=== PATIENT | female | born 1990 | race African-American/Black ===

== ENCOUNTER 2018-04-07 20:31 | Emergency (ER) | payer OTHER ==
--- NOTE | 2018-04-07 20:42 | ED Physician Documentation ---
PD HPI FEMALE - Stated complaint Stated Complaint: FEM / - Chief complaint Chief Complaint: Abd Pain - History obtained from History obtained from: Patient - History of Present Illness Timing - onset: How many days ago (has had some lower abd cramping for 3 days at times, with some vaginal spotting/bleeding today. early with dates est 6 weeks based on LMP. Had home preg test positive a week ago.) Timing - details: Abrupt onset, Still present, Waxing and waning Associated symptoms: Vaginal pain, Vaginal discharge. 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 No: Prior ectopic, Ovarian cysts Similar symptoms before: Has not had sx before Recently seen: Not recently seen Review of Systems Constitutional: denies: Fever, Chills, Myalgias Nose: denies: Rhinorrhea / runny nose, Congestion Throat: denies: Sore throat Respiratory: denies: Cough GI: denies: Vomiting, Diarrhea : reports: Vaginal bleeding. denies: Dysuria, Frequency, Discharge PD PAST MEDICAL HISTORY - Past Medical History Cardiovascular: None Respiratory: None Neuro: None Endocrine/Autoimmune: None CABINET INSTALLER: None : None PD ED PE NORMAL - Vitals Vital signs reviewed: Yes - General General: Alert and oriented X 3, No acute distress, Well developed/nourished - HEENT HEENT: Pharynx benign - Neck Neck: Supple, no meningeal sign, No adenopathy - Cardiac Cardiac: RRR, No murmur - Respiratory Respiratory: Clear bilaterally - Abdomen Abdomen: Soft, Non distended - Female Female : Deferred Results - Vitals Vitals: Vital Signs - 24 hr 04/07/18 04/07/18 20:34 22:17 Temperature 36.2 C L 36.6 C Heart Rate 78 73 Respiratory 16 14 Rate Blood Pressure 121/47 L 123/55 L O2 Saturation 100 100 Oxygen O2 Source Room air - Labs Labs: Laboratory Tests 04/07/18 04/07/18 04/07/18 20:44 20:44 21:01 WBC 6.1 RBC 3.71 L Hgb 12.0 Hct 35.3 L MCV 95.1 MCH 32.2 H MCHC 33.9 RDW 12.2 Plt Count 186 MPV 9.0 Neut # (Auto) 2.8 Lymph # (Auto) 2.6 [place] # (Auto) 0.5 Eos # (Auto) 0.1 Baso # (Auto) 0.0 Absolute Nucleated RBC 0.00 Nucleated RBC % 0.0 HCG, Quant Urine Color YELLOW Urine Clarity HAZY Urine pH 6.5 Ur Specific [place] 1.025 1.025 Urine Protein NEGATIVE Urine Glucose (UA) NEGATIVE Urine Ketones NEGATIVE Urine Occult Blood SMALL H Urine Nitrite NEGATIVE Urine Bilirubin NEGATIVE Urine Urobilinogen 0.2 (NORMAL) Ur Leukocyte Esterase NEGATIVE Urine RBC 6-10 H Urine WBC 0-3 Ur Squamous Epith Cells MOD Squamous H Amorphous Sediment Moderate Urine Bacteria Few Ur Microscopic Review INDICATED Urine Culture Comments NOT INDICATED Urine HCG, Qual POSITIVE Blood Type 04/07/18 04/07/18 21:01 21:01 WBC RBC Hgb Hct MCV MCH MCHC RDW Plt Count MPV Neut # (Auto) Lymph # (Auto) [place] # (Auto) Eos # (Auto) Baso # (Auto) Absolute Nucleated RBC Nucleated RBC % HCG, Quant 1143.52 Urine Color Urine Clarity Urine pH Ur Specific [place] Urine Protein Urine Glucose (UA) Urine Ketones Urine Occult Blood Urine Nitrite Urine Bilirubin Urine Urobilinogen Ur Leukocyte Esterase Urine RBC Urine WBC Ur Squamous Epith Cells Amorphous Sediment Urine Bacteria Ur Microscopic Review Urine Culture Comments Urine HCG, Qual Blood Type O POSITIVE PD MEDICAL DECISION MAKING - ED course Complexity details: reviewed results (No IUP seen but quant at 1100s. So could b e just early and too small to see vs miscarriage. Will need repeat quant HCG in 2-3 days. She is stable for discharge at this time. ), considered differential, d/w patient Departure - Departure Disposition: 01 Home, Self Care Clinical Impression: Vaginal bleeding affecting early Condition: Stable Record reviewed to determine appropriate education?: Yes Instructions: ED Miscarriage Poss Follow-Up: Alan Land MD [Primary Care Provider] - Comments: Drink lots of fluids. Tylenol or ibuprofen if needed for pains. The ultrasound was normal and your blood test quantitative hCG is of a level where the may be too early to see on ultrasound a quarter of the time. Repeating the blood test in about 3 to his would give better certainty of whether this is an early not yet visible versus having been a miscarriage. Return if significant bleeding develops. Otherwise follow-up with your primary care for repeat blood test in 2-3 days. Discharge Date/Time: 04/07/18 22:22
[2018-04-07 20:53] LABS: BILIRUBIN,URINE NEGATIVE (NEGATIVE); GLUCOSE, URINE (UA) NEGATIVE (NEGATIVE); KETONES,URINE (UA) NEGATIVE (NEGATIVE); LEUKOCYTE ESTERASE, URINE NEGATIVE (NEGATIVE); NITRITE,URINE NEGATIVE (NEGATIVE); OCCULT BLOOD,URINE SMALL (NEGATIVE); PH,URINE 6.5 PH (5.0-7.5); PROTEIN,URINE NEGATIVE (NEGATIVE); UROBILINOGEN,URINE 0.2 (NORMAL) E.U./dL (NORMAL)
[2018-04-07 20:56] LABS: CLARITY,URINE HAZY (CLEAR)
[2018-04-07 20:57] LABS: HCG UR QUAL POSITIVE
[2018-04-07 21:01] LABS: AMORPHOUS SEDIMENT,UR Moderate /LPF; BACTERIA,URINE Few /HPF (None Seen); SQUAMOUS EPITHELIAL CELL,UR MOD Squamous (<= Few)
[2018-04-07 21:09] LABS: BASOPHILS % (AUTO) 0.6 %; EOSINOPHILS # (AUTO) 0.1 10^3/uL (0.0-0.7); EOSINOPHILS % (AUTO) 2.1 %; LYMPHOCYTES # (AUTO) 2.6 10^3/uL (1.5-3.5); LYMPHOCYTES % (AUTO) 43.4 %; MEAN CORPUSCULAR HEMOGLOBIN 32.2 pg (27.0-31.0); MEAN CORPUSCULAR HGB CONC 33.9 g/dL (32.0-36.0); MEAN CORPUSCULAR VOLUME 95.1 fL (81.0-99.0); MONOCYTES # (AUTO) 0.5 10^3/uL (0.0-1.0); MONOCYTES % (AUTO) 7.8 %; NEUTROPHILS # (AUTO) 2.8 10^3/uL (1.5-6.6); NEUTROPHILS % (AUTO) 46.1 %; PLT - PLATELET COUNT 186 10^3/uL (130-450); RED BLOOD COUNT 3.71 10^6/uL (4.20-5.40); RED CELL DISTRIBUTION WIDTH 12.2 % (12.0-15.0); WHITE BLOOD COUNT 6.1 x10^3/uL (4.8-10.8)
--- NOTE | 2018-04-07 22:05 | Ultrasound Report ---
Reason: preg about 5-6 weeks by dates; bleeding Procedure Date: 04/07/2018 Accession Number: [id number] / [id number] Procedure: US - OB First Trimester CPT Code: FULL RESULT: EXAM: FIRST TRIMESTER OBSTETRIC ULTRASOUND (LESS THAN 11 WEEKS). EXAM DATE: 04/07/2018 09:51 PM. CLINICAL HISTORY: about 5-6 weeks by dates; bleeding. LMP: 02/24/2018. COMPARISONS: None. TECHNIQUE: Transabdominal and transvaginal ultrasound examination with static image documentation. CLINICAL DATES: EGA 6 weeks 0 days with MELVINA 12/01/2018 based on LMP. ASSESSMENT: Gestational Sac: None seen. MATERNAL STRUCTURES: Uterus: Anteverted. Unremarkable. Cervix: Closed. Right Ovary/Adnexa: The ovary measures 2.9 x 1.9 x 1.7 cm, volume 4.9 cc. Unremarkable. Left Ovary/Adnexa: The ovary measures 2.6 x 1.5 x 1.2 cm, volume 2.4 cc. Unremarkable. Free Fluid: None. Other: None. IMPRESSION: 1. Normal pelvic ultrasound exam demonstrating no evidence of intrauterine or ectopic . RADIA
[2018-04-07 22:18] VITALS: BP 123/55
== END 2018-04-07 22:22 | disposition home or self-care (01) ==
LOC: ED 20:31
DX: O20.9 Hemorrhage in early pregnancy, unspecified (principal); Z3A.01 Less than 8 weeks gestation of pregnancy
CPT/HCPCS: 36415; 76801; 76817; 81001; 81003; 81025; 84702; 85025; 86900; 86901; 87086; 99283

== ENCOUNTER 2018-04-22 14:12 | Day surgery (SDC) | payer OTHER ==
[2018-04-22 14:49] LABS: BASOPHILS % (AUTO) 0.3 %; EOSINOPHILS % (AUTO) 0.1 %; LYMPHOCYTES # (AUTO) 1.2 10^3/uL (1.5-3.5); LYMPHOCYTES % (AUTO) 10.8 %; MEAN CORPUSCULAR HEMOGLOBIN 32.4 pg (27.0-31.0); MEAN CORPUSCULAR HGB CONC 33.9 g/dL (32.0-36.0); MEAN CORPUSCULAR VOLUME 95.6 fL (81.0-99.0); MEAN PLATELET VOLUME 9.2 fL (7.9-10.8); MONOCYTES # (AUTO) 0.4 10^3/uL (0.0-1.0); MONOCYTES % (AUTO) 3.7 %; NEUTROPHILS # (AUTO) 9.4 10^3/uL (1.5-6.6); NEUTROPHILS % (AUTO) 85.1 %; PLT - PLATELET COUNT 183 10^3/uL (130-450); WHITE BLOOD COUNT 11.1 x10^3/uL (4.8-10.8)
[2018-04-22 15:02] LABS: ALBUMIN 4.2 g/dL (3.2-5.5); ALBUMIN/GLOBULIN RATIO 1.6 (1.0-2.2); BILIRUBIN,TOTAL 0.7 mg/dL (0.2-1.0); CALCIUM 9.1 mg/dL (8.5-10.3); CREATININE 0.8 mg/dL (0.4-1.0); TOTAL PROTEIN 6.9 g/dL (6.7-8.2)
[2018-04-22] MEDS ORDERED: SODIUM CHLORIDE 0.9% 1,000 ML IV ONE ×4 (16:11→17:50)
[2018-04-22] MEDS ORDERED: fentaNYL 100 MCG/2 ML VIAL IVP STA (16:27)
[2018-04-22] MEDS ORDERED: ONDANSETRON 4 MG/2 ML VIAL IVP STA (16:28)
--- NOTE | 2018-04-22 16:28 | ED Physician Documentation ---
PD HPI ABD PAIN - Stated complaint Stated Complaint: ABD PX/FEMALE - Chief complaint Chief Complaint: Abd Pain - History obtained from History obtained from: Patient - History of Present Illness Timing - onset: Today Timing - duration: Hours (8) Timing - details: Abrupt onset Pain level max: 10 Pain level now: 10 Quality: Aching, Pain Location: All over / everywhere Radiation: Other (non-radiating) Improved by: Other (nothing) Worsened by: Moving, Palpation Associated symptoms: No: Fever, Nausea, Vomiting, Hematemesis, Diarrhea, Constipation, Melena, Hematochezia, Dysuria Recently seen: Not recently seen - Additional information Additional information: 28-year-old female presents to the emergency department after being diagnosed with a spontaneous miscarriage approximately 2 weeks ago. Her hCG was 1100 at that time. [facility] and found to be 800. This morning had sudden onset of lower abdominal pain now radiating across the entire abdomen. Has vaginal spotting as well. 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 : None - Present Medications Home Medications: Ambulatory Orders Medication Instructions Recorded Confirmed Multivitamin [Multiple Vitamins] 1 tab PO DAILY 04/22/18 04/22/18 - Allergies Allergies/Adverse Reactions: Allergies Allergy/AdvReac Type Severity Reaction Status Date / Time No Known Drug Allergies Allergy Verified 04/22/18 14:31 - Social History Does the pt smoke?: No Smoking Status: Never smoker Does the pt drink ETOH?: No Does the pt have substance abuse?: No - Immunizations Immunizations are current?: No - POLST Patient has POLST: No PD ED PE NORMAL - Vitals Vital signs reviewed: Yes - General General: Alert and oriented X 3, No acute distress - HEENT HEENT: Moist mucous membranes - Neck Neck: Supple, no meningeal sign - Cardiac Cardiac: RRR, Strong equal pulses - Respiratory Respiratory: No respiratory distress, Clear bilaterally - Abdomen Abdomen: Soft, Other (diffusely tender with peritoneal signs) - Back Back: No spinal TTP - Derm Derm: Warm and dry - Extremities Extremities: No edema - Neuro Neuro: Alert and oriented X 3 Results - Vitals Vitals: Vital Signs - 24 hr 04/22/18 04/22/18 04/22/18 14:27 14:31 14:32 Temperature 36.5 C Heart Rate 94 92 85 Respiratory 18 15 Rate Blood Pressure 95/56 L 85/48 L 90/56 L O2 Saturation 100 100 04/22/18 04/22/18 04/22/18 14:55 16:19 16:56 Temperature Heart Rate 82 97 Respiratory 15 15 Rate Blood Pressure 79/38 L 90/60 109/49 L O2 Saturation 95 04/22/18 04/22/18 04/22/18 20:05 20:10 20:15 Temperature 36.4 C L 36.1 C L 36.2 C L Heart Rate 128 H 113 H 109 H Respiratory 20 17 16 Rate Blood Pressure 128/49 L 119/43 L 105/44 L O2 Saturation 100 100 100 04/22/18 04/22/18 04/22/18 20:20 20:27 20:35 Temperature 36.1 C L 36.1 C L Heart Rate 108 H 109 H 94 Respiratory 20 16 20 Rate Blood Pressure 112/58 L 112/67 113/63 O2 Saturation 100 100 04/22/18 04/22/18 04/22/18 20:45 20:50 21:05 Temperature 36 C L 36.0 C L 36.4 C L Heart Rate 96 93 88 Respiratory 14 17 16 Rate Blood Pressure 113/60 113/60 112/44 L O2 Saturation 100 100 04/22/18 04/22/18 04/22/18 21:20 21:35 21:50 Temperature 36.6 C Heart Rate 106 H 99 99 Respiratory 16 16 16 Rate Blood Pressure 109/71 115/51 L 114/51 L O2 Saturation 100 100 100 04/22/18 04/22/18 04/22/18 22:01 22:29 23:01 Temperature 36.8 C Heart Rate 94 102 H 94 Respiratory 16 16 14 Rate Blood Pressure 116/50 L 114/51 L 113/49 L O2 Saturation 100 100 100 Oxygen O2 Source Room air - Labs Labs: Laboratory Tests 04/22/18 04/22/18 04/22/18 14:45 14:45 14:45 WBC 11.1 H RBC 3.70 L Hgb 12.0 Hct 35.4 L MCV 95.6 MCH 32.4 H MCHC 33.9 RDW 12.0 Plt Count 183 MPV 9.2 Neut # (Auto) 9.4 H Lymph # (Auto) 1.2 L [place] # (Auto) 0.4 Eos # (Auto) 0.0 Baso # (Auto) 0.0 Absolute Nucleated RBC 0.01 Nucleated RBC % 0.0 Sodium 135 Potassium 3.9 Chloride 103 Carbon Dioxide 24 Anion Gap 8.0 BUN 10 Creatinine 0.8 Estimated GFR (MDRD) 104 Glucose 109 H Calcium 9.1 Total Bilirubin 0.7 AST 14 ALT 11 Alkaline Phosphatase 53 Total Protein 6.9 Albumin 4.2 Globulin 2.7 Albumin/Globulin Ratio 1.6 Lipase 22 HCG, Quant 3007.00 Urine Color Urine Clarity Urine pH Ur Specific [place] Urine Protein Urine Glucose (UA) Urine Ketones Urine Occult Blood Urine Nitrite Urine Bilirubin Urine Urobilinogen Ur Leukocyte Esterase Ur Microscopic Review Urine Culture Comments Blood Type Antibody Screen Crossmatch IS Only 04/22/18 04/22/18 04/22/18 15:59 15:59 22:00 WBC RBC Hgb Hct MCV MCH MCHC RDW Plt Count MPV Neut # (Auto) Lymph # (Auto) [place] # (Auto) Eos # (Auto) Baso # (Auto) Absolute Nucleated RBC Nucleated RBC % Sodium Potassium Chloride Carbon Dioxide Anion Gap BUN Creatinine Estimated GFR (MDRD) Glucose Calcium Total Bilirubin AST ALT Alkaline Phosphatase Total Protein Albumin Globulin Albumin/Globulin Ratio Lipase HCG, Quant Urine Color YELLOW Urine Clarity CLEAR Urine pH 5.0 Ur Specific [place] >=1.030 H Urine Protein NEGATIVE Urine Glucose (UA) 250 H Urine Ketones NEGATIVE Urine Occult Blood TRACE-LYSE Urine Nitrite NEGATIVE Urine Bilirubin NEGATIVE Urine Urobilinogen 0.2 (NORMAL) Ur Leukocyte Esterase NEGATIVE Ur Microscopic Review NOT INDICATED Urine Culture Comments NOT INDICATED Blood Type O POSITIVE Cancelled Antibody Screen NEGATIVE Cancelled Crossmatch IS Only See Detail PD MEDICAL DECISION MAKING - ED course Complexity details: reviewed results, re-evaluated patient, considered differential, d/w patient, d/w family, d/w internal audit consultant ED course: 28-year-old female presents to the emergency department with diffuse abdominal pain since this morning. Story is concerning for a ruptured ectopic . Bedside ultrasound reveals free fluid in the right upper quadrant and left upper quadrant. Call was placed to Dr. Neumann at 1630 who will come evaluate the patient. Type and screen performed. Second IV placed. IV fluids given. Pain controlled. This document was made in part using voice recognition software. While efforts are made to proofread this document, sound alike and grammatical errors may occur. Departure - Departure Disposition: ED Transfer to [facility] Clinical Impression: Hemoperitoneum, Ruptured ectopic Condition: Serious Discharge Date/Time: 04/22/18 17:59
--- NOTE | 2018-04-22 17:00 | ANESTHESIA ---
Pre-Anesthesia VS, & Labs - Diagnosis ruptured ectopic - Procedure laparoscopy removal of ectopic Vital Signs: Temp Pulse Resp BP Pulse Ox 36.5 C 82 15 90/60 100 04/22/18 14:27 04/22/18 16:19 04/22/18 16:19 04/22/18 16:19 04/22/18 14:32 Height 5 ft 5 in Weight (kg) 72.575 kg Body Mass Index 26.6 - NPO Other (2 hours) - Is Patient ?: Yes - Lab Results Current Lab Results: Laboratory Tests 04/22/18 14:45: HCG, Quant 3007.00 04/22/18 14:45: Sodium 135, Potassium 3.9, Chloride 103, Carbon Dioxide 24, Anion Gap 8.0, BUN 10, Creatinine 0.8, Estimated GFR (MDRD) 104, Glucose 109 H, Calcium 9.1, Total Bilirubin 0.7, AST 14, ALT 11, Alkaline Phosphatase 53, Total Protein 6.9, Albumin 4.2, Globulin 2.7, Albumin/Globulin Ratio 1.6, Lipase 22 04/22/18 14:45: WBC 11.1 H, RBC 3.70 L, Hgb 12.0, Hct 35.4 L, MCV 95.6, MCH 32.4 H, MCHC 33.9, RDW 12.0, Plt Count 183, MPV 9.2, Neut # (Auto) 9.4 H, Lymph # (Auto) 1.2 L, [place] # (Auto) 0.4, Eos # (Auto) 0.0, Baso # (Auto) 0.0, Absolute Nucleated RBC 0.01, Nucleated RBC % 0.0 Lab results reviewed: Yes Fish Bones: 04/22/18 14:45 04/22/18 14:45 Home Medications and Allergies Home Medications: Ambulatory Orders Multivitamin [Multiple Vitamins] 1 tab PO DAILY 04/22/18 Active Medications Sodium Chloride (Normal Saline 0.9%) 1,000 mls @ 150 mls/hr IV .[id number] ONE Stop: 04/22/18 22:50 Last Admin: 04/22/18 16:30 Dose: 150 mls/hr Multivitamin [Multiple Vitamins] 1 tab PO DAILY 04/22/18 Allergies/Adverse Reactions: Allergies Allergy/AdvReac Type Severity Reaction Status Date / Time No Known Drug Allergies Allergy Verified 04/22/18 14:31 Anes History & Medical History - Anesthetic History Anesthesia Complications: reports: No previous complications Family history of Anesthesia Complications: Denies Family history of Malignant Hyperthermia: Denies - Medical History Cardiovascular: reports: None Pulmonary: reports: None, Asthma Urinary: reports: None Neuro: reports: None Endocrine/Autoimmune: reports: None Smoking Status: Never smoker Exam General: Alert, Oriented x3, Cooperative, No acute distress Dental: WNL Mouth Openin Fingerbreadth Neck Mobility: Normal Mallampati classification: II Thyromental Distance: 4-6 cm Respiratory: Lungs clear, Normal breath sounds, No respiratory distress, No accessory muscle use Cardiovascular: Regular rate, Normal S1, Normal S2, No murmurs Plan Anesthesia Type: General Consent for Procedure(s) Verified and Reviewed: Yes Code Status: Attempt Resuscitation ASA classification: 2-Mild systemic disease Is this case an emergency?: Yes
[2018-04-22] MEDS ORDERED: ceFAZolin 2 GM/50 ML 2 GM/50 ML BAG IV STA (17:34)
[2018-04-22] MEDS ORDERED: BUPIVACAINE 0.25%-EPI 1:200000 PF 30 ML VIAL ONE (17:54)
[2018-04-22] MEDS ORDERED: ceFAZolin 2 GM in SODIUM CHLORIDE 0.9% MINIBAG 100 ML IV SCH (18:00)
--- NOTE | 2018-04-22 18:18 | PREOP HISTORY & PHYSICAL ---
DATE OF SERVICE: 04/22/2018 Physician: Blake Neumann MD 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: A 28-year-old G6, P3, AB2, female whose last menstrual period was 02/24/2019. CHIEF COMPLAINT: Pelvic and abdominal pain. HISTORY OF PRESENT ILLNESS: Patient developed onset of her abdominal pain about 8 o'clock this morning. It has become progressively worse with time. She presents to the ED for evaluation. She had a quantitative hCG done at an unknown date, which was 1000. Historically, it fell to 800. Today in the ED, it is 3700. She had an ultrasound done in the ED, which shows a large amount of blood or fluid surrounding the liver. She does have a history of having a chlamydial infection in the past, which appears to be distant. PAST MEDICAL HISTORY: Asthma. PAST SURGICAL HISTORY: Left Hand teeth. ALLERGIES: NONE KNOWN. CURRENT MEDICATIONS: vitamins as well as an albuterol inhaler p.r.n. HABITS: None. 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 PHYSICAL EXAMINATION GENERAL: Well-developed, well-nourished female, who is in a significant amount of pain at this time. She is rather apprehensive. VITAL SIGNS: Blood pressure is 90/60, pulse 82, respirations 15, 100% on room air. HEENT: Pupils are equal, round. Extraocular muscles are intact. Mouth is clear. HEART: Regular rate and rhythm. LUNGS: [place] are clear. ABDOMEN: Tender throughout. There is evidence of rebound. DIAGNOSTIC AND LABORATORY DATA Ultrasound showed a large amount of fluid around the liver. This appears to be blood. CBC: White count 11.5, hemoglobin 12.0, hematocrit 35.4, platelets are 183. Beta hCG here in the ED is 3007. BMP is noted to be within normal limits. LFTs are also noted to be normal. IMPRESSION: A 28-year-old G6, P3, AB2, female 8 weeks with what appears to be an ectopic . The risks and benefits have been explained to the patient including those but not limited to bleeding, infection, injury to pelvic organs, which include the uterus, tubes, ovaries, bowel, bladder, and ureters. She is aware of the potential for DVT with PE. PLAN: We are planning to do diagnostic laparoscopy with probable salpingectomy as well as irrigation of the abdominal cavity. TD: 04/22/2018 17:11 [email or web address]
[2018-04-22] MEDS ORDERED: BUPIVACAINE 0.25%-EPI 1:200000 PF 10 ML VIAL SUBQ ONE ×2 (18:35)
[2018-04-22] MEDS ORDERED: LACTATED RINGERS 1,000 ML IV ONE (18:50)
[2018-04-22] MEDS ORDERED: GLYCOPYRROLATE 1 MG/5 ML VIAL IVP ONE (20:08)
[2018-04-22] MEDS ORDERED: ONDANSETRON 4 MG/2 ML VIAL IVP ONE (20:08)
[2018-04-22] MEDS ORDERED: LIDOCAINE-MPF 2% 5 ML VIAL IM ONE (20:08)
[2018-04-22] MEDS ORDERED: ePHEDrine 50 MG/ML VIAL IVP ONE (20:08)
[2018-04-22] MEDS ORDERED: ceFAZolin 2 GM/50 ML 2 GM/50 ML BAG IV ONE (20:08)
[2018-04-22] MEDS ORDERED: PROPOFOL 200 MG/20 ML VIAL IVP ONE (20:08)
[2018-04-22] MEDS ORDERED: KETOROLAC 30 MG/ML VIAL IVP ONE (20:08)
[2018-04-22] MEDS ORDERED: fentaNYL 100 MCG/2 ML VIAL IVP ONE (20:08)
[2018-04-22] MEDS ORDERED: ROCURONIUM 50 MG/5 ML VIAL IVP ONE (20:08)
--- NOTE | 2018-04-22 20:16 | OPERATIVE REPORT ---
Operative Report - General Procedure Date: 04/22/18 Planned Procedure: Dx Laproscopy Pre-Op Diagnosis: Ectopic Procedure Performed: Left salpingectomy, removal of 1600 ml of blood Post Op Diagnosis: Hemoperitoneum, left ectopic - Procedure Note Primary Surgeon: Blake Neumann MD Anesthesia Provider: Loi Prasad MD Anesthesia Technique: General ET tube Pathology: Left fallopian tube IV Fluids (mL): 1,500 Estimated Blood Loss (mL): 1,600 Urine Output (mL): 300 - Other Other Information/Narrative: dictation # [id number]
[2018-04-22] MEDS ORDERED: LORazepam 2 MG/ML VIAL IVP PRN (20:28)
[2018-04-22] MEDS ORDERED: oxyCODONE 5 MG TABLET PO PRN (20:28)
[2018-04-22] MEDS ORDERED: ONDANSETRON 4 MG/2 ML VIAL IVP PRN (20:28)
[2018-04-22] MEDS ORDERED: fentaNYL 100 MCG/2 ML VIAL ONE (20:43)
[2018-04-22] MEDS: HYDROmorphone 0.5 MG/0.5 ML SYRINGE IVP PRN (21:44)
[2018-04-22] MEDS ORDERED: SODIUM CHLORIDE FLUSH 0.9% 10 ML SYRINGE ONE (21:46)
[2018-04-22 22:12] LABS: BILIRUBIN,URINE NEGATIVE (NEGATIVE); GLUCOSE, URINE (UA) 250 mg/dL (NEGATIVE); KETONES,URINE (UA) NEGATIVE (NEGATIVE); LEUKOCYTE ESTERASE, URINE NEGATIVE (NEGATIVE); NITRITE,URINE NEGATIVE (NEGATIVE); OCCULT BLOOD,URINE TRACE-LYSE (NEGATIVE); PROTEIN,URINE NEGATIVE (NEGATIVE); UROBILINOGEN,URINE 0.2 (NORMAL) E.U./dL (NORMAL)
[2018-04-22 22:13] LABS: CLARITY,URINE CLEAR (CLEAR)
[2018-04-23] MEDS ORDERED: SODIUM CHLORIDE FLUSH 0.9% 10 ML SYRINGE ONE ×4 (01:08→14:00)
[2018-04-23] MEDS: HYDROmorphone 0.5 MG/0.5 ML SYRINGE IVP PRN (01:09)
--- NOTE | 2018-04-23 05:16 | OPERATIVE REPORT ---
DATE OF SERVICE: 04/22/2018 Physician: Blake Neumann MD PREOPERATIVE DIAGNOSIS: Ectopic . POSTOPERATIVE DIAGNOSIS: Left ectopic with 1600 mL of hemoperitoneum. PROCEDURE: Laparoscopic left salpingectomy and irrigation and removal of hemoperitoneum. SURGEON: Blake Neumann MD ANESTHESIA: General via endotracheal tube with Loi Lambert MD. ESTIMATED BLOOD LOSS: 1600 mL of hemoperitoneum was encountered. Blood loss from the procedure itself was minimal. INTRAVENOUS FLUIDS: 1500 mL URINE OUTPUT: 300 mL FINDINGS: Upon entering the abdominal cavity, there was evidence of a large amount of blood in the cul-de-sac, as well as around the liver. This was removed. There was evidence of swelling and discoloration of the left fallopian tube. The right fallopian tube appeared to be free of disease. There was blood actively dripping from the left fallopian tube. DESCRIPTION OF PROCEDURE: Following adequate endotracheal anesthesia, patient was placed in the dorsal lithotomy position in [facility]. At this point, she was prepped and draped in the usual fashion. A timeout was performed, in which concerns were addressed. Because she was young, the concerns about her stability, as well as the amount of blood loss were raised. The procedure was then commenced. A speculum was placed in the vagina. The cervix was visualized, grasped with a single-tooth tenaculum, and the cervical manipulator was placed without difficulty. The hat blocking operator's gloves were changed and, following this, a stab wound was made in subumbilical region following local anesthesia with 0.25% Marcaine with epinephrine. A 5 mm port was placed on the first pass, and upon placing the laparoscope, there was evidence of a large amount of blood in the pelvis. Two additional ports were placed, both in the left and right lower quadrants, following 0.25% Marcaine with epinephrine and a skin incision with a #11 blade. At this point, the cul-de-sac was irrigated, and the pelvis was suctioned clear of the predominant amount of clot, and there was evidence of a left fallopian tube with an ectopic and blood actively dripping. At this point, the mesosalpinx was cauterized and transected, utilizing the LigaSure. This was carried all the way down to the cornu. Care was taken to try to minimize any injury to the vascularity to the left ovary. There was some difficulty with bleeding at the cornu, as well as the round ligament area. This was treated with the LigaSure several times and appeared as though the bleeding had ceased. The cul-de-sac was suctioned clear of any clot. The scope was then turned to the liver, and there was evidence of a large amount of blood around the perihepatic area. This was suctioned clear and, because of some large clots, the right lower quadrant port was increased to 10 mm, and then this was utilized to suction the area clear of clot. The area was then irrigated and then re- suctioned. The patient was placed then back in Trendelenburg, and then the cul-de-sac was irrigated. The area of the fallopian tube was once again inspected. There was no evidence of active bleeding. At this point, the 10 mm port was removed from the right lower quadrant and then closed utilizing 0 Vicryl, utilizing a Nimesh-Nuha. The laparoscope was used to observe the subumbilical port, and there was no evidence of any bleeding from this site. The scope was removed, and the CO2 was allowed to escape as much as possible. At this point, the port was also removed. The incisions were then closed utilizing 4-0 Monocryl subcuticular, and then Dermabond was placed. The instruments were removed from the vagina. Patient tolerated the procedure well and was taken to Recovery in stable condition. Sponge and needle counts were correct. TD: 04/22/2018 20:36 [email or web address]
[2018-04-23] MEDS: ACETAMINOPHEN 325 MG TABLET PO PRN ×3 (05:47→14:03)
[2018-04-23 05:55] LABS: BASOPHILS % (AUTO) 0.2 %; EOSINOPHILS % (AUTO) 0.1 %; HGB - HEMOGLOBIN 10.7 g/dL (12.0-16.0); LYMPHOCYTES # (AUTO) 2.3 10^3/uL (1.5-3.5); LYMPHOCYTES % (AUTO) 21.6 %; MEAN CORPUSCULAR HEMOGLOBIN 31.9 pg (27.0-31.0); MEAN CORPUSCULAR HGB CONC 35.1 g/dL (32.0-36.0); MEAN CORPUSCULAR VOLUME 90.9 fL (81.0-99.0); MEAN PLATELET VOLUME 9.5 fL (7.9-10.8); MONOCYTES # (AUTO) 0.9 10^3/uL (0.0-1.0); MONOCYTES % (AUTO) 8.5 %; NEUTROPHILS # (AUTO) 7.6 10^3/uL (1.5-6.6); NEUTROPHILS % (AUTO) 69.6 %; PLT - PLATELET COUNT 140 10^3/uL (130-450); RED BLOOD COUNT 3.37 10^6/uL (4.20-5.40); RED CELL DISTRIBUTION WIDTH 14.7 % (12.0-15.0); WHITE BLOOD COUNT 10.9 x10^3/uL (4.8-10.8)
[2018-04-23] MEDS: LACTATED RINGERS 1,000 ML IV SCH ×2 (07:53→09:27)
[2018-04-23] MEDS: KETOROLAC 30 MG/ML VIAL IVP PRN ×2 (07:54→14:03)
--- NOTE | 2018-04-23 08:11 | PROVIDER PROGRESS NOTE ---
Subjective - General Procedure Date: 04/22/18 Post Op Days: 1 Procedure Performed: Laproscopic left salpingectomy - Review of Systems General: positive: Other (Pain 06/17. Last PM 10/17. adiquit control with pain medication. No flatus) Objective - Patient Data Reviewed Vital Signs: Yes Vital Signs: Vital Signs x48h Temp Pulse Resp BP Pulse Ox 04/23/18 07:37 37.1 C 100 18 103/49 L 100 04/23/18 06:54 37.0 C 113 H 16 101/50 L 100 04/23/18 03:37 37.0 C 89 16 105/45 L 04/23/18 03:02 99 16 103/45 L 100 04/23/18 02:50 98 16 96/48 L 100 04/23/18 01:50 98 16 101/43 L 100 04/23/18 01:16 37.0 C 103 H 16 106/41 L 04/23/18 00:50 104 H 16 105/49 L 100 04/23/18 00:49 37.0 C 98 16 105/45 L Weight: Weight 04/21/18 04/22/18 04/23/18 23:59 23:59 23:59 Weight (kg) 72.575 kg Intake & Output: Intake and Output Totals x24h 04/21/18 04/22/18 04/23/18 23:59 23:59 23:59 Intake Total 3400 850 Output Total 1100 Balance 3400 -250 - Lab Results Lab Results: 04/23/18 05:35 04/22/18 14:45 Other Lab Results: Lab Results x24hrs 04/23/18 04/22/18 04/22/18 Range/Units 05:35 22:00 15:59 WBC 10.9 H (4.8-10.8) x10^3/uL RBC 3.37 L (4.20-5.40) 10^6/uL Hgb 10.7 L (12.0-16.0) g/dL Hct 30.6 L (37.0-47.0) % MCV 90.9 (81.0-99.0) fL MCH 31.9 H (27.0-31.0) pg MCHC 35.1 (32.0-36.0) g/dL RDW 14.7 (12.0-15.0) % Plt Count 140 (130-450) 10^3/uL MPV 9.5 (7.9-10.8) fL Neut # (Auto) 7.6 H (1.5-6.6) 10^3/uL Lymph # (Auto) 2.3 (1.5-3.5) 10^3/uL [place] # (Auto) 0.9 (0.0-1.0) 10^3/uL Eos # (Auto) 0.0 (0.0-0.7) 10^3/uL Baso # (Auto) 0.0 (0.0-0.1) 10^3/uL Absolute Nucleated RBC 0.00 x10^3/uL Nucleated RBC % 0.0 /100WBC Sodium (135-145) mmol/L Potassium (3.5-5.0) mmol/L Chloride (101-111) mmol/L Carbon Dioxide (21-32) mmol/L Anion Gap (6-13) BUN (6-20) mg/dL Creatinine (0.4-1.0) mg/dL Estimated GFR (MDRD) (>89) Glucose (70-100) mg/dL Calcium (8.5-10.3) mg/dL Total Bilirubin (0.2-1.0) mg/dL AST (10-42) IU/L ALT (10-60) IU/L Alkaline Phosphatase (42-121) IU/L Total Protein (6.7-8.2) g/dL Albumin (3.2-5.5) g/dL Globulin (2.1-4.2) g/dL Albumin/Globulin Ratio (1.0-2.2) Lipase (22-51) U/L HCG, Quant mIU/mL Urine Color YELLOW Urine Clarity CLEAR (CLEAR) Urine pH 5.0 (5.0-7.5) PH Ur Specific [place] >=1.030 H (1.002-1.030) Urine Protein NEGATIVE (NEGATIVE) mg/dL Urine Glucose (UA) 250 H (NEGATIVE) mg/dL Urine Ketones NEGATIVE (NEGATIVE) mg/dL Urine Occult Blood TRACE-LYSE (NEGATIVE) Urine Nitrite NEGATIVE (NEGATIVE) Urine Bilirubin NEGATIVE (NEGATIVE) Urine Urobilinogen 0.2 (NORMAL) (NORMAL) E.U./dL Ur Leukocyte Esterase NEGATIVE (NEGATIVE) Ur Microscopic Review NOT INDICATED Urine Culture Comments NOT INDICATED Blood Type Cancelled Antibody Screen Cancelled Crossmatch IS Only See Detail 04/22/18 04/22/18 04/22/18 Range/Units 15:59 14:45 14:45 WBC (4.8-10.8) x10^3/uL RBC (4.20-5.40) 10^6/uL Hgb (12.0-16.0) g/dL Hct (37.0-47.0) % MCV (81.0-99.0) fL MCH (27.0-31.0) pg MCHC (32.0-36.0) g/dL RDW (12.0-15.0) % Plt Count (130-450) 10^3/uL MPV (7.9-10.8) fL Neut # (Auto) (1.5-6.6) 10^3/uL Lymph # (Auto) (1.5-3.5) 10^3/uL [place] # (Auto) (0.0-1.0) 10^3/uL Eos # (Auto) (0.0-0.7) 10^3/uL Baso # (Auto) (0.0-0.1) 10^3/uL Absolute Nucleated RBC x10^3/uL Nucleated RBC % /100WBC Sodium 135 (135-145) mmol/L Potassium 3.9 (3.5-5.0) mmol/L Chloride 103 (101-111) mmol/L Carbon Dioxide 24 (21-32) mmol/L Anion Gap 8.0 (6-13) BUN 10 (6-20) mg/dL Creatinine 0.8 (0.4-1.0) mg/dL Estimated GFR (MDRD) 104 (>89) Glucose 109 H (70-100) mg/dL Calcium 9.1 (8.5-10.3) mg/dL Total Bilirubin 0.7 (0.2-1.0) mg/dL AST 14 (10-42) IU/L ALT 11 (10-60) IU/L Alkaline Phosphatase 53 (42-121) IU/L Total Protein 6.9 (6.7-8.2) g/dL Albumin 4.2 (3.2-5.5) g/dL Globulin 2.7 (2.1-4.2) g/dL Albumin/Globulin Ratio 1.6 (1.0-2.2) Lipase 22 (22-51) U/L HCG, Quant 3007.00 mIU/mL Urine Color Urine Clarity (CLEAR) Urine pH (5.0-7.5) PH Ur Specific [place] (1.002-1.030) Urine Protein (NEGATIVE) mg/dL Urine Glucose (UA) (NEGATIVE) mg/dL Urine Ketones (NEGATIVE) mg/dL Urine Occult Blood (NEGATIVE) Urine Nitrite (NEGATIVE) Urine Bilirubin (NEGATIVE) Urine Urobilinogen (NORMAL) E.U./dL Ur Leukocyte Esterase (NEGATIVE) Ur Microscopic Review Urine Culture Comments Blood Type O POSITIVE Antibody Screen NEGATIVE Crossmatch IS Only 04/22/18 Range/Units 14:45 WBC 11.1 H (4.8-10.8) x10^3/uL RBC 3.70 L (4.20-5.40) 10^6/uL Hgb 12.0 (12.0-16.0) g/dL Hct 35.4 L (37.0-47.0) % MCV 95.6 (81.0-99.0) fL MCH 32.4 H (27.0-31.0) pg MCHC 33.9 (32.0-36.0) g/dL RDW 12.0 (12.0-15.0) % Plt Count 183 (130-450) 10^3/uL MPV 9.2 (7.9-10.8) fL Neut # (Auto) 9.4 H (1.5-6.6) 10^3/uL Lymph # (Auto) 1.2 L (1.5-3.5) 10^3/uL [place] # (Auto) 0.4 (0.0-1.0) 10^3/uL Eos # (Auto) 0.0 (0.0-0.7) 10^3/uL Baso # (Auto) 0.0 (0.0-0.1) 10^3/uL Absolute Nucleated RBC 0.01 x10^3/uL Nucleated RBC % 0.0 /100WBC Sodium (135-145) mmol/L Potassium (3.5-5.0) mmol/L Chloride (101-111) mmol/L Carbon Dioxide (21-32) mmol/L Anion Gap (6-13) BUN (6-20) mg/dL Creatinine (0.4-1.0) mg/dL Estimated GFR (MDRD) (>89) Glucose (70-100) mg/dL Calcium (8.5-10.3) mg/dL Total Bilirubin (0.2-1.0) mg/dL AST (10-42) IU/L ALT (10-60) IU/L Alkaline Phosphatase (42-121) IU/L Total Protein (6.7-8.2) g/dL Albumin (3.2-5.5) g/dL Globulin (2.1-4.2) g/dL Albumin/Globulin Ratio (1.0-2.2) Lipase (22-51) U/L HCG, Quant mIU/mL Urine Color Urine Clarity (CLEAR) Urine pH (5.0-7.5) PH Ur Specific [place] (1.002-1.030) Urine Protein (NEGATIVE) mg/dL Urine Glucose (UA) (NEGATIVE) mg/dL Urine Ketones (NEGATIVE) mg/dL Urine Occult Blood (NEGATIVE) Urine Nitrite (NEGATIVE) Urine Bilirubin (NEGATIVE) Urine Urobilinogen (NORMAL) E.U./dL Ur Leukocyte Esterase (NEGATIVE) Ur Microscopic Review Urine Culture Comments Blood Type Antibody Screen Crossmatch IS Only - Current Medications Current Medications: Current Medications Generic Name Dose Route Start Last Admin Trade Name Freq PRN Reason Stop Dose Admin Acetaminophen 650 mg 04/22/18 20:29 04/23/18 05:47 Tylenol PO 650 mg Q4HR PRN Administration Pain or Fever > 38C (100.4F) Hydromorphone HCl 0.5 mg 04/22/18 20:28 04/23/18 01:09 Dilaudid Inj Syringe IVP 0.5 mg Q30M PRN Administration Breakthrough Pain Lactated Ringer's 1,000 mls @ 100 mls/hr 04/22/18 23:00 04/23/18 07:53 Lr IV 100 mls/hr .Q10H PAM Administration Ketorolac Tromethamine 30 mg 04/22/18 20:30 04/23/18 07:54 Toradol Inj (30mg) IVP 04/27/18 20:29 30 mg Q6HR PRN Administration PAIN - Physical Exam Respiratory: positive: Chest non-tender, No respiratory distress, Breath sounds nml Cardiovascular: positive: Regular rate & rhythm, No murmur, No gallop Back: negative: CVA tenderness (R), CVA tenderness (L) Impression/Plan - Problem List Problem List: POD # 1 slow progress Hemorrhage. Hgb 10.7/30.6 after 2 units. increase activity. plan to send home today.
[2018-04-23] MEDS ORDERED: ALBUTEROL NEB 2.5 MG/3 ML INH PRN (09:47)
--- NOTE | 2018-04-23 17:48 | PROVIDER PROGRESS NOTE ---
Subjective - General Procedure Date: 04/22/18 Post Op Days: 1 Procedure Performed: Laproscopic left salpingectomy - Review of Systems Wound/Incisions: positive: Healing well General: positive: Other (Pain 06/17. Last PM 10/17. adiquit control with pain medication. No flatus) Objective - Patient Data Reviewed Vital Signs: Yes Vital Signs: Vital Signs x48h Temp Pulse Resp BP Pulse Ox 04/23/18 16:00 37.0 C 78 18 105/57 L 100 04/23/18 11:24 37 C 73 18 107/43 L 100 Weight: Weight 04/21/18 04/22/18 04/23/18 23:59 23:59 23:59 Weight (kg) 72.575 kg Intake & Output: Intake and Output Totals x24h 04/21/18 04/22/18 04/23/18 23:59 23:59 23:59 Intake Total 3400 1678.333 Output Total 2475 Balance 3400 -796.667 - Lab Results Lab Results: 04/23/18 05:35 04/22/18 14:45 Other Lab Results: Lab Results x24hrs 04/23/18 04/22/18 04/22/18 Range/Units 05:35 22:00 15:59 WBC 10.9 H (4.8-10.8) x10^3/uL RBC 3.37 L (4.20-5.40) 10^6/uL Hgb 10.7 L (12.0-16.0) g/dL Hct 30.6 L (37.0-47.0) % MCV 90.9 (81.0-99.0) fL MCH 31.9 H (27.0-31.0) pg MCHC 35.1 (32.0-36.0) g/dL RDW 14.7 (12.0-15.0) % Plt Count 140 (130-450) 10^3/uL MPV 9.5 (7.9-10.8) fL Neut # (Auto) 7.6 H (1.5-6.6) 10^3/uL Lymph # (Auto) 2.3 (1.5-3.5) 10^3/uL [place] # (Auto) 0.9 (0.0-1.0) 10^3/uL Eos # (Auto) 0.0 (0.0-0.7) 10^3/uL Baso # (Auto) 0.0 (0.0-0.1) 10^3/uL Absolute Nucleated RBC 0.00 x10^3/uL Nucleated RBC % 0.0 /100WBC Urine Color YELLOW Urine Clarity CLEAR (CLEAR) Urine pH 5.0 (5.0-7.5) PH Ur Specific [place] >=1.030 H (1.002-1.030) Urine Protein NEGATIVE (NEGATIVE) mg/dL Urine Glucose (UA) 250 H (NEGATIVE) mg/dL Urine Ketones NEGATIVE (NEGATIVE) mg/dL Urine Occult Blood TRACE-LYSE (NEGATIVE) Urine Nitrite NEGATIVE (NEGATIVE) Urine Bilirubin NEGATIVE (NEGATIVE) Urine Urobilinogen 0.2 (NORMAL) (NORMAL) E.U./dL Ur Leukocyte Esterase NEGATIVE (NEGATIVE) Ur Microscopic Review NOT INDICATED Urine Culture Comments NOT INDICATED Blood Type Cancelled Antibody Screen Cancelled Crossmatch IS Only See Detail - Current Medications Current Medications: Current Medications Generic Name Dose Route Start Last Admin Trade Name Ryanq PRN Reason Stop Dose Admin Acetaminophen 650 mg 04/22/18 20:29 04/23/18 14:03 Tylenol PO 650 mg Q4HR PRN Administration Pain or Fever > 38C (100.4F) Hydromorphone HCl 0.5 mg 04/22/18 20:28 04/23/18 01:09 Dilaudid Inj Syringe IVP 0.5 mg Q30M PRN Administration Breakthrough Pain Lactated Ringer's 1,000 mls @ 100 mls/hr 04/22/18 23:00 04/23/18 09:27 Lr IV Not Given .Q10H PAM Ketorolac Tromethamine 30 mg 04/22/18 20:30 04/23/18 14:03 Toradol Inj (30mg) IVP 04/27/18 20:29 30 mg Q6HR PRN Administration PAIN - Physical Exam Wound/Incisions: positive: Healing well, No drainage Abdomen: positive: Tenderness (markedly improved from last PM) Comments/Other: Pt was able to void 500 ml Impression/Plan - Problem List Problem List: Send home RTC 1 week Call for increased pain, light headness, chills temps or fevers Discharge meds Oxycodone 5 mg # 10 Mortin 800 mg
[2018-04-23 18:27] VITALS: BP 110/50
[2018-04-29] MEDS ORDERED: LIDOCAINE-MPF 1% 5 ML VIAL ONE (18:52)
== END 2018-04-23 18:40 | disposition home or self-care (01) ==
LOC: ED 14:12 → OR 14:56 → OBS 21:19 → OR 04-23 18:40
PROVIDERS: ATTEND Obstetrics & Gynecology
PROC: 0UT64ZZ Resection of Left Fallopian Tube, Percutaneous Endoscopic Approach (ICD-10-PCS; 2018-04-22)
PROC: 10T24ZZ Resection of Products of Conception, Ectopic, Percutaneous Endoscopic Approach (ICD-10-PCS; principal; 2018-04-22 18:00)
DX: O00.102 Left tubal pregnancy without intrauterine pregnancy (principal); O08.1 Delayed or excessive hemorrhage following ectopic and molar pregnancy; D62 Acute posthemorrhagic anemia; K66.1 Hemoperitoneum; J45.909 Unspecified asthma, uncomplicated; Z79.51 Long term (current) use of inhaled steroids; Z86.19 Personal history of other infectious and parasitic diseases
CPT/HCPCS: 36415; 59151; 80053; 81003; 83690; 84702; 85025; 86850; 86900; 86901; 86920; 96374; 99284; 99285; A9270; J0690; J1170; J7120; P9016; 36430; 81001; 87086

== ENCOUNTER 2018-04-26 23:36 | Emergency (ER) | payer OTHER ==
[2018-04-27] MEDS ORDERED: BENZONATATE 100 MG CAPSULE PO STA (00:34)
[2018-04-27] MEDS ORDERED: DEXAMETHASONE 10 MG/ML VIAL PO STA (00:34)
--- NOTE | 2018-04-27 00:36 | ED Physician Documentation ---
History of Present Illness - Stated complaint Stated Complaint: FEVER/VOM/HEADACHE - Chief complaint Chief Complaint: General - Additonal information Additional information: 28-year-old female presents the emergency department with body aches, chills, fever, cough and general fatigue which started today. The patient's 3 children are also sick with the same symptoms. The patient has been using her albuterol to help manage her cough since she has asthma. Symptoms are described as moderate. Symptoms improved with antipyretics. The patient is status post a recent laparoscopic surgery, the patient reports abdominal wall pain with the c oughing. The patient denies any focal or ongoing abdominal pain. No dysuria or vomiting. No other associated symptoms. Review of Systems Constitutional: reports: Fever, Chills, Myalgias, Fatigue Eyes: denies: Discharge Ears: denies: Ear pain Nose: reports: Rhinorrhea / runny nose, Congestion Throat: reports: Sore throat Cardiac: denies: Chest pain / pressure Respiratory: reports: Cough. 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 : None - Present Medications Home Medications: Ambulatory Orders Medication Instructions Recorded Confirmed Multivitamin [Multiple Vitamins] 1 tab PO DAILY 04/22/18 04/22/18 Benzonatate [Tessalon Perle] 100 mg PO TID PRN #30 capsule 04/27/18 - Allergies Allergies/Adverse Reactions: Allergies Allergy/AdvReac Type Severity Reaction Status Date / Time No Known Drug Allergies Allergy Verified 04/22/18 14:31 - Social History Does the pt smoke?: No Smoking Status: Never smoker Does the pt drink ETOH?: No Does the pt have substance abuse?: No - Immunizations Immunizations are current?: No - POLST Patient has POLST: No PD ED PE NORMAL - General General: Alert and oriented X 3, No acute distress - HEENT HEENT: Atraumatic, PERRL, EOMI, Ears normal, Moist mucous membranes, Pharynx chris ign - Neck Neck: Supple, no meningeal sign - Cardiac Cardiac: RRR, Strong equal pulses - Respiratory Respiratory: No respiratory distress, Clear bilaterally - Abdomen Abdomen: Soft, Non tender, Non distended, Other (The surgical wounds appear c lean dry and intact) - Derm Derm: Normal color - Extremities Extremities: No deformity, Normal ROM s pain, No edema - Neuro Neuro: Alert and oriented X 3, Normal speech - Psych Psych: Normal affect Results - Vitals Vitals: Vital Signs - 24 hr 04/26/18 23:53 Temperature 37.4 C Heart Rate 110 H Respiratory 16 Rate O2 Saturation 100 Oxygen O2 Source Room air PD MEDICAL DECISION MAKING - ED course ED course: The patient's symptoms seem to represent a viral process, on physical exam there is no findings to suggest acute otitis media, strep pharyngitis or pneumonia. The patient's 3 children also have the same exact symptoms. The patient is status post a recent laparoscopic surgery but she has no focal area of abdominal pain or ongoing abdominal pain that would suggest an acute intra-abdominal process. Presently, the patient appears appropriate for ongoing outpatient management. I discussed warning signs and recommended returning for any worsening or any concerns Departure - Departure Disposition: 01 Home, Self Care Clinical Impression: Viral syndrome Upper respiratory infection Qualifiers: URI type: unspecified viral URI Qualified Code(s): J06.9 - Acute upper respiratory infection, unspecified Condition: Good Instructions: ED Viral Syndrome, ED URI Viral Follow-Up: [facility] [Provider Group] - Within 1 week Prescriptions: Benzonatate [Tessalon Perle] 100 mg PO TID PRN #30 capsule PRN Reason: Cough Comments: Please return to Emergency department for worsening symptoms or any concerns Discharge Date/Time: 04/27/18 00:46
[2018-04-27] MEDS ORDERED: CHERRY SYRUP 10 ML UDC PO ONE (00:44)
== END 2018-04-27 00:46 | disposition home or self-care (01) ==
LOC: ED 23:36
DX: B34.9 Viral infection, unspecified (principal); J06.9 Acute upper respiratory infection, unspecified
CPT/HCPCS: 99282; 99283; A9270

== ENCOUNTER 2018-08-21 16:22 | Emergency (ER) | payer OTHER ==
[2018-08-21 17:35] LABS: BASOPHILS % (AUTO) 0.5 %; EOSINOPHILS # (AUTO) 0.1 10^3/uL (0.0-0.7); EOSINOPHILS % (AUTO) 1.5 %; HGB - HEMOGLOBIN 12.6 g/dL (12.0-16.0); LYMPHOCYTES # (AUTO) 2.3 10^3/uL (1.5-3.5); LYMPHOCYTES % (AUTO) 35.7 %; MEAN CORPUSCULAR HEMOGLOBIN 31.6 pg (27.0-31.0); MEAN CORPUSCULAR HGB CONC 34.1 g/dL (32.0-36.0); MEAN CORPUSCULAR VOLUME 92.7 fL (81.0-99.0); MONOCYTES # (AUTO) 0.4 10^3/uL (0.0-1.0); MONOCYTES % (AUTO) 6.7 %; NEUTROPHILS # (AUTO) 3.6 10^3/uL (1.5-6.6); NEUTROPHILS % (AUTO) 55.6 %; PLT - PLATELET COUNT 193 10^3/uL (130-450); WHITE BLOOD COUNT 6.5 x10^3/uL (4.8-10.8)
[2018-08-21 17:49] LABS: ALBUMIN 4.4 g/dL (3.2-5.5); ALBUMIN/GLOBULIN RATIO 1.5 (1.0-2.2); BILIRUBIN,TOTAL 0.7 mg/dL (0.2-1.0); CALCIUM 9.6 mg/dL (8.5-10.3); CREATININE 0.6 mg/dL (0.4-1.0); TOTAL PROTEIN 7.3 g/dL (6.7-8.2)
--- NOTE | 2018-08-21 20:02 | ED Physician Documentation ---
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: Prior ectopic (4 months ago) Recently seen: Not recently seen Review of Systems Constitutional: denies: Fever, Chills Ears: denies: Ear pain Nose: denies: Rhinorrhea / runny nose, Congestion GI: denies: Vomiting, Diarrhea Skin: denies: Rash Musculoskeletal: denies: Neck pain, Back pain Neurologic: denies: Headache PD PAST MEDICAL HISTORY - Past Medical History Cardiovascular: None Respiratory: None Neuro: None Endocrine/Autoimmune: None SET STAFF FITTER: None : None - Present Medications Home Medications: Ambulatory Orders Medication Instructions Recorded Confirmed Multivitamin [Multiple Vitamins] 1 tab PO DAILY 04/22/18 04/22/18 Benzonatate [Tessalon Perle] 100 mg PO TID PRN #30 capsule 04/27/18 - Allergies Allergies/Adverse Reactions: Allergies Allergy/AdvReac Type Severity Reaction Status Date / Time No Known Drug Allergies Allergy Verified 08/21/18 16:45 - Social History Does the pt smoke?: No Smoking Status: Never smoker Does the pt drink ETOH?: No Does the pt have substance abuse?: No - Immunizations Immunizations are current?: No - POLST Patient has POLST: No PD ED PE NORMAL - Vitals Vital signs reviewed: Yes - General General: Alert and oriented X 3, No acute distress - HEENT HEENT: Moist mucous membranes - Neck Neck: Supple, no meningeal sign - Cardiac Cardiac: RRR, Strong equal pulses - Respiratory Respiratory: No respiratory distress, Clear bilaterally - Abdomen Abdomen: Soft, Non tender, Non distended - Derm Derm: Warm and dry - Extremities Extremities: No edema, No calf tenderness / cord - Neuro Neuro: Alert and oriented X 3 Results - Vitals Vitals: Vital Signs - 24 hr 08/21/18 08/21/18 08/21/18 16:40 18:13 20:18 Temperature 36.8 C 36.6 C 36.5 C Heart Rate 83 90 91 Respiratory 16 12 12 Rate Blood Pressure 104/49 L 125/72 110/52 L O2 Saturation 100 100 99 Oxygen O2 Source Nasal cannula - Labs Labs: Laboratory Tests 08/21/18 08/21/18 08/21/18 16:27 16:27 16:27 WBC 6.5 RBC 4.00 L Hgb 12.6 Hct 37.1 MCV 92.7 MCH 31.6 H MCHC 34.1 RDW 12.0 Plt Count 193 MPV 9.0 Neut # (Auto) 3.6 Lymph # (Auto) 2.3 [place] # (Auto) 0.4 Eos # (Auto) 0.1 Baso # (Auto) 0.0 Absolute Nucleated RBC 0.00 Nucleated RBC % 0.0 Sodium 136 Potassium 3.6 Chloride 104 Carbon Dioxide 23 Anion Gap 9.0 BUN 8 Creatinine 0.6 Estimated GFR (MDRD) 144 Glucose 90 Calcium 9.6 Total Bilirubin 0.7 AST 14 ALT 11 Alkaline Phosphatase 50 Total Protein 7.3 Albumin 4.4 Globulin 2.9 Albumin/Globulin Ratio 1.5 Lipase 26 HCG, Quant 94649.00 Urine Color Urine Clarity Urine pH Ur Specific [employer] Urine Protein Urine Glucose (UA) Urine Ketones Urine Occult Blood Urine Nitrite Urine Bilirubin Urine Urobilinogen Ur Leukocyte Esterase Urine RBC Urine WBC Ur Squamous Epith Cells Urine Bacteria Ur Microscopic Review Urine Culture Comments 08/21/18 20:12 WBC RBC Hgb Hct MCV MCH MCHC RDW Plt Count MPV Neut # (Auto) Lymph # (Auto) [place] # (Auto) Eos # (Auto) Baso # (Auto) Absolute Nucleated RBC Nucleated RBC % Sodium Potassium Chloride Carbon Dioxide Anion Gap BUN Creatinine Estimated GFR (MDRD) Glucose Calcium Total Bilirubin AST ALT Alkaline Phosphatase Total Protein Albumin Globulin Albumin/Globulin Ratio Lipase HCG, Quant Urine Color YELLOW Urine Clarity CLEAR Urine pH 7.0 Ur Specific [employer] <=1.005 Urine Protein NEGATIVE Urine Glucose (UA) NEGATIVE Urine Ketones NEGATIVE Urine Occult Blood NEGATIVE Urine Nitrite NEGATIVE Urine Bilirubin NEGATIVE Urine Urobilinogen 0.2 (NORMAL) Ur Leukocyte Esterase SMALL H Urine RBC 0-5 Urine WBC 6-10 H Ur Squamous Epith Cells MOD Squamous H Urine Bacteria Few Ur Microscopic Review INDICATED Urine Culture Comments NOT INDICATED - Rads (name of study) OB US Radiology: Prelim report reviewed, EMP read contemporaneously, See rad report ( There is an intrauterine gestational sac. There is a single embryo with a crown- rump length of 0.3 cm, corresponding to an estimated gestational age by ultrasound of 5 weeks 6 days. heart tracing was difficult to acquire; this could be secondary to early stage of gestation. 2. There is a small to moderate sized perigestational hypoechoic region which could represent area of hemorrhage. 3. No significant adnexal abnormalities are seen. ) PD MEDICAL DECISION MAKING - ED course Complexity details: reviewed results, re-evaluated patient, considered differential, d/w patient ED course: 28-year-old female presents to the emergency department with concern about a possible ectopic . She has an intrauterine gestational sac with a single embryo inside. No evidence of ectopic. No further issues at this time. Patient counseled regarding signs and symptoms for which I believe and urgent re-evaluation would be necessary. Patient with good understanding of and agreement to plan and is comfortable going home at this time This document was made in part using voice recognition software. While efforts are made to proofread this document, sound alike and grammatical errors may occur. Departure - Departure Disposition: 01 Home, Self Care Clinical Impression: Qualifiers: Weeks of gestation: less than 8 weeks Qualified Code(s): Z3A.01 - Less than 8 weeks gestation of Abdominal pain Qualifiers: Abdominal location: unspecified location Qualified Code(s): R10.9 - Unspecified abdominal pain Condition: Good Instructions: ED Care, ED Preg Established Normal Sxs Follow-Up: your,doctor in 1 week [Other] Comments: You appear to be about 5 weeks today. Return if you worsen. Follow-up with your doctor for further care. Discharge Date/Time: 08/21/18 20:46
[2018-08-21 20:18] VITALS: BP 110/52
[2018-08-21 20:20] LABS: BILIRUBIN,URINE NEGATIVE (NEGATIVE); CLARITY,URINE CLEAR (CLEAR); GLUCOSE, URINE (UA) NEGATIVE (NEGATIVE); KETONES,URINE (UA) NEGATIVE (NEGATIVE); LEUKOCYTE ESTERASE, URINE SMALL (NEGATIVE); NITRITE,URINE NEGATIVE (NEGATIVE); OCCULT BLOOD,URINE NEGATIVE (NEGATIVE); PROTEIN,URINE NEGATIVE (NEGATIVE); UROBILINOGEN,URINE 0.2 (NORMAL) E.U./dL (NORMAL)
--- NOTE | 2018-08-21 20:21 | Ultrasound Report ---
Reason: + preg test, lower abd pain Procedure Date: 08/21/2018 Accession Number: [id number] / [id number] Procedure: US - OB First Trimester CPT Code: FULL RESULT: EXAM: FIRST TRIMESTER OBSTETRIC ULTRASOUND (Less than 11 weeks) EXAM DATE: 08/21/2018 06:52 PM. CLINICAL HISTORY: + preg test, lower abd pain. LMP: 07/11/2018. COMPARISONS: None. TECHNIQUE: Transabdominal and transvaginal ultrasound examination with static image documentation. ASSESSMENT: Gestational Sac: Single intrauterine. Mean gestational sac diameter: 10 mm = weeks/days. Embryo: CRL (crown-rump length) 3 mm = weeks/days. Cardiac activity: Not definitely seen. Yolk sac: 3 mm. Amniotic fluid: Not accurately assessed at this gestational age. Early placenta: Not visible at this gestational age. Other: There is a small to sized perigestational fluid collection measuring 3.1 x 0.6 x 3.3 cm.. MATERNAL STRUCTURES: Uterus: Anteverted. Unremarkable. Cervix: Closed. Right Ovary/Adnexa: Unremarkable. Left Ovary/Adnexa: Unremarkable. There is a left corpus luteal cyst. Free Fluid: None. Other: None. IMPRESSION: 1. There is an intrauterine gestational sac. There is a single embryo with a crown-rump length of 0.3 cm, corresponding to an estimated gestational age by ultrasound of 5 weeks 6 days. heart tracing was difficult to acquire; this could be secondary to early stage of gestation. 2. There is a small to moderate sized perigestational hypoechoic region which could represent area of hemorrhage. 3. No significant adnexal abnormalities are seen. RADIA
[2018-08-21 20:39] LABS: BACTERIA,URINE Few /HPF (None Seen); RBC,URINE 0-5 /HPF (0-5); SQUAMOUS EPITHELIAL CELL,UR MOD Squamous (<= Few)
== END 2018-08-21 20:46 | disposition home or self-care (01) ==
LOC: ED 16:22
DX: O09.11 Supervision of pregnancy with history of ectopic pregnancy, first trimester (principal); O99.89 Other specified diseases and conditions complicating pregnancy, childbirth and the puerperium; R10.2 Pelvic and perineal pain; Z3A.01 Less than 8 weeks gestation of pregnancy
CPT/HCPCS: 36415; 76801; 76817; 80053; 81001; 81003; 83690; 84702; 85025; 87086; 99283

== ENCOUNTER 2018-12-21 13:51 | Outpatient (CLI) | payer OTHER ==
[2018-12-21 14:23] VITALS: BP 105/51
[2018-12-21 15:18] LABS: BILIRUBIN,URINE NEGATIVE (NEGATIVE); GLUCOSE, URINE (UA) NEGATIVE (NEGATIVE); KETONES,URINE (UA) NEGATIVE (NEGATIVE); LEUKOCYTE ESTERASE, URINE NEGATIVE (NEGATIVE); NITRITE,URINE NEGATIVE (NEGATIVE); OCCULT BLOOD,URINE NEGATIVE (NEGATIVE); PH,URINE 6.5 PH (5.0-7.5); PROTEIN,URINE NEGATIVE (NEGATIVE); UROBILINOGEN,URINE 0.2 (NORMAL) E.U./dL (NORMAL)
[2018-12-21 15:20] LABS: CLARITY,URINE CLEAR (CLEAR)
[2018-12-21 15:39] LABS: RUPTURE OF MEMBRANES PLUS NEGATIVE (NEGATIVE)
--- NOTE | 2018-12-21 16:27 | PROVIDER PROGRESS NOTE ---
- HPI Current : Current EDU 04/16/19 Gestation 23 Weeks and 3 Days 6 Para 3 Vital Signs Temperature 36.8 C 12/21/18 14:10 Heart Rate 86 12/21/18 14:10 Respiratory Rate 18 12/21/18 14:10 Blood Pressure 105/51 L 12/21/18 14:10 O2 Saturation 100 12/21/18 14:10 Temperature 36.8 C 12/21/18 14:10 Heart Rate 86 12/21/18 14:10 Respiratory Rate 18 12/21/18 14:10 Blood Pressure 105/51 L 12/21/18 14:10 O2 Saturation 100 12/21/18 14:10 The patient came to OB complaining of possible rupture of membranes. She had noticed a whitish discharge that seemed watery and she was not sure what it was. She denies any vaginal bleeding or contractions.She denotes good movement. - Exam Speculum exam: Speculum exam revealed is closed cervix. The vagina was without any lesions. There was a whitish discharge that was somewhat liquidy.Vaginitis panel was obtained. No leakage from the cervix was noted with Valsalva maneuver. Laboratory Results - last 24 hr 12/21/18 12/21/18 15:10 15:10 Urine Color YELLOW Urine Clarity CLEAR Urine pH 6.5 Ur Specific [place] 1.010 Urine Protein NEGATIVE Urine Glucose (UA) NEGATIVE Urine Ketones NEGATIVE Urine Occult Blood NEGATIVE Urine Nitrite NEGATIVE Urine Bilirubin NEGATIVE Urine Urobilinogen 0.2 (NORMAL) Ur Leukocyte Esterase NEGATIVE Ur Microscopic Review NOT INDICATED Urine Culture Comments NOT INDICATED Membranes Rupture NEGATIVE - Plan Plan: Intrauterine at 23 weeks 3 days Probable physiologic discharge. Since the patient's laboratory tests for rupture of membranes was negative and there was no leakage noted during her exam it is felt that we have successfully ruled that out. The vaginitis panel was sent to be complete. I do think what we see is just a physiologic discharge. She does have an appointment with her own [facility] SUPERINTENDENT on [facility] in 1 week. She will keep that appointment. If a nything abnormal is noted on the vaginitis panel we will notify the patient.
[2018-12-21 18:21] LABS: CANDIDA GROUP DNA POSITIVE (NEGATIVE); CANDIDA KRUSEI DNA NEGATIVE (NEGATIVE); TRICHOMONAS VAGINALIS DNA NEGATIVE (NEGATIVE)
== END 2018-12-21 16:30 | disposition home or self-care (01) ==
LOC: WFO 13:51 → FBP 13:54 → WFO 16:30
PROVIDERS: ATTEND Obstetrics & Gynecology
DX: O99.89 Other specified diseases and conditions complicating pregnancy, childbirth and the puerperium (principal); N89.8 Other specified noninflammatory disorders of vagina; Z3A.23 23 weeks gestation of pregnancy
CPT/HCPCS: 81001; 81003; 84112; 87086; 87661; 87801; 99214

== ENCOUNTER 2019-11-05 09:02 | Emergency (ER) | payer OTHER ==
[2019-11-05 09:13] VITALS: BP 110/61
--- NOTE | 2019-11-05 09:52 | ED Physician Documentation ---
PD HPI SKIN - Stated complaint Stated Complaint: R HAND PX AND SWELLING - Chief complaint Chief Complaint: Wound - History obtained from History obtained from: Patient - Additional information Additional information: Patient comes emergency department complaining of pain and swelling in her left index finger. She states that she noticed this yesterday and that she tried to poke it with a needle. She says that she got a little bit of thick clear liquid out, but no pus. She denies any fevers or chills. She states she feels a little bit of pain going up the finger, that most of the pain is centered around the paronychial area. No difficulty with flexion. No other complaints at this time. She states that her finger is actually little less swollen now than it was earlier this morning. Review of Systems Ten Systems: 10 systems reviewed and negative Constitutional: reports: Reviewed and negative Eyes: reports: Reviewed and negative Ears: reports: Reviewed and negative Nose: reports: Reviewed and negative Throat: reports: Reviewed and negative Cardiac: reports: Reviewed and negative Respiratory: reports: Reviewed and negative GI: reports: Reviewed and negative : reports: Reviewed and negative Skin: reports: Other (Paronychial pain and swelling.) Musculoskeletal: reports: Reviewed and negative Neurologic: reports: Reviewed and negative Psychiatric: reports: Reviewed and negative Endocrine: reports: Reviewed and negative Immunocompromised: reports: Reviewed and negative PD PAST MEDICAL HISTORY - Past Medical History Cardiovascular: None Respiratory: None Neuro: None Endocrine/Autoimmune: None FORENSIC 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: None : None - Present Medications Home Medications: Ambulatory Orders Medication Instructions Recorded Confirmed Multivitamin [Multiple Vitamins] 1 tab PO DAILY 04/22/18 04/22/18 Benzonatate [Tessalon Perle] 100 mg PO TID PRN #30 capsule 04/27/18 Cephalexin [Keflex] 500 mg PO Q6H #20 capsule 11/05/19 Fluconazole [Diflucan] 150 mg PO DAILY 2 Days #2 tablet 11/05/19 - Allergies Allergies/Adverse Reactions: Allergies Allergy/AdvReac Type Severity Reaction Status Date / Time No Known Drug Allergies Allergy Verified 11/05/19 09:13 - Social History Does the pt smoke?: No Smoking Status: Never smoker Does the pt drink ETOH?: No Does the pt have substance abuse?: No - Immunizations Immunizations are current?: No - POLST Patient has POLST: No PD ED PE NORMAL - Vitals Vital signs reviewed: Yes - General General: Alert and oriented X 3, No acute distress - HEENT HEENT: Atraumatic, PERRL, EOMI, Moist mucous membranes - Neck Neck: Supple, no meningeal sign - Respiratory Respiratory: No respiratory distress - Derm Derm: Normal color, Warm and dry, Other (Mild paronychial swelling of the left index finger. No fluctuance. Mild tenderness. No subungual pus or hematoma. Finger tip and pad are soft. No erythema or streaking. No swelling of remainder of finger.) - Extremities Extremities: No deformity - Neuro Neuro: Alert and oriented X 3, pastry cook helper 2-12 intact - Psych Psych: Normal mood, Normal affect Results - Vitals Vitals: Vital Signs - 24 hr 11/05/19 11/05/19 09:10 10:05 Temperature 36.4 C L 36.4 C L Heart Rate 73 73 Respiratory 12 13 Rate Blood Pressure 110/61 110/61 O2 Saturation 97 100 Oxygen O2 Source Room air PD MEDICAL DECISION MAKING - ED course Complexity details: considered differential, d/w patient ED course: I discussed with the patient that at this point in time, we would be unlikely to get anything out of the finger, drainage nieves, by I&D. The patient may have a mild paronychial infection, and I have recommended a short course of antibiotics and hot packing. The patient is breast-feeding and this will be considered. Patient also requests Diflucan because of her propensity for Jeannie when on antibiotics. We have discussed the usual indications for return. Departure - Departure Disposition: 01 Home, Self Care Clinical Impression: Paronychia Condition: Stable Instructions: ED Staph Infec Abx Tx Only Prescriptions: Fluconazole [Diflucan] 150 mg PO DAILY 2 Days #2 tablet Cephalexin [Keflex] 500 mg PO Q6H #20 capsule Comments: As we have discussed, your finger may have developed an infection around the cuticle area. This does not appear to have spread to the rest of your finger or anterior hand. Generally, in the early stages, these can be treated with a short course of antibiotics and hot packing. At this point in time, there is not evidence of a distinct pus pocket that would benefit from drainage. Please take the antibiotics starting today, as directed. Please place hot compresses on the finger for 20 minutes at a time, re-heating if necessary, several times a day until you are feeling better. If the area continues to swell after a couple days of antibiotics and you do not notice improvement, you should have it rechecked.
== END 2019-11-05 10:23 | disposition home or self-care (01) ==
LOC: ED 09:02
DX: L03.012 Cellulitis of left finger (principal)
CPT/HCPCS: 99282; 99284

== ENCOUNTER 2019-11-17 07:46 | Emergency (ER) | payer OTHER ==
[2019-11-17] MEDS ORDERED: BUFFERED LIDOCAINE 10 ML SYRINGE SUBQ STA (08:04)
[2019-11-17 08:12] VITALS: BP 114/67
--- NOTE | 2019-11-17 08:15 | ED Physician Documentation ---
PD HPI UPPER EXT INJURY - Stated complaint Stated Complaint: RIGHT FINGER PAIN - Chief complaint Chief Complaint: Ext Problem - History obtained from History obtained from: Patient - Additonal information Additional information: She was seen a couple of days ago for a paronychia that was felt not ripe for incision and drainage. She is on Keflex. It has worsened. It is the right second finger. Review of Systems Constitutional: reports: Reviewed and negative Eyes: reports: Reviewed and negative Nose: reports: Reviewed and negative PD PAST MEDICAL HISTORY - Past Medical History Cardiovascular: None Respiratory: None Neuro: None Endocrine/Autoimmune: None GI: None VARNISHER: None : None HEENT: None Psych: None Musculoskeletal: None Derm: None - Past Surgical History Past Surgical History: Yes /VARNISHER: Other - Present Medications Home Medications: Ambulatory Orders Medication Instructions Recorded Confirmed Multivitamin [Multiple Vitamins] 1 tab PO DAILY 04/22/18 04/22/18 Benzonatate [Tessalon Perle] 100 mg PO TID PRN #30 capsule 04/27/18 Cephalexin [Keflex] 500 mg PO Q6H #20 capsule 11/05/19 Fluconazole [Diflucan] 150 mg PO DAILY 2 Days #2 tablet 11/05/19 Cephalexin [Keflex] 500 mg PO Q6H #28 capsule 11/17/19 - Allergies Allergies/Adverse Reactions: Allergies Allergy/AdvReac Type Severity Reaction Status Date / Time No Known Drug Allergies Allergy Verified 11/17/19 08:11 - Social History Does the pt smoke?: No Smoking Status: Never smoker Does the pt drink ETOH?: No Does the pt have substance abuse?: No - Immunizations Immunizations are current?: No - POLST Patient has POLST: No PD ED PE NORMAL - Vitals Vital signs reviewed: Yes - General General: Alert and oriented X 3, No acute distress - Extremities Extremities: Other (Large fluctuant paronychia of the right second finger, mostly the radial side, but it is almost circumferential.) - Neuro Neuro: Alert and oriented X 3, Normal speech Results - Vitals Vitals: Vital Signs - 24 hr 11/17/19 08:04 Temperature 36.9 C Heart Rate 69 Respiratory 16 Rate Blood Pressure 114/67 O2 Saturation 95 Oxygen O2 Source Room air Procedures - General procedure General procedure: The right second finger was blocked with buffered lidocaine in standard fashion, and then a #15 blade was used to incise near the nailbed into the most fluctuant part of the paronychia and copious pus returned. Departure - Departure Disposition: 01 Home, Self Care Clinical Impression: Paronychia Condition: Good Record reviewed to determine appropriate education?: Yes Instructions: ED Fingernail Infec Prescriptions: Cephalexin [Keflex] 500 mg PO Q6H #28 capsule Comments: Return anytime if the swelling starts to worsen again. Otherwise follow-up with your doctor in 5 to 7 days for recheck. Warm soaks daily as discussed. Forms: Activity restrictions Discharge Date/Time: 11/17/19 08:43
== END 2019-11-17 08:43 | disposition home or self-care (01) ==
LOC: ED 07:46
DX: L03.011 Cellulitis of right finger (principal)
CPT/HCPCS: 10060

== ENCOUNTER 2020-03-25 18:54 | Emergency (ER) | payer OTHER ==
--- NOTE | 2020-03-25 19:12 | ED Physician Documentation ---
PD HPI FEMALE - Stated complaint Stated Complaint: FEMALE /PX - Chief complaint Chief Complaint: Abd Pain - History obtained from History obtained from: Patient - Additional information Additional information: This is a G6 now with a history of 1 termination and 1 R sided ectopic with known blood type of O+. LMP of February 16 with positive test March 21 putting her at 5 weeks and 2 days. She was having some right-sided abdominal discomfort radiating to the back and was seen by her family doctor yesterday and an ultrasound was done. Per her report beta-hCG was in the 70s and there was a right-sided adnexal mass that she Was told could be a cyst or an ectopic and she was told to come in if bleeding began, she has some light bleeding today.. 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 : None HEENT: None Psych: None Musculoskeletal: None Derm: None - Past Surgical History Past Surgical History: Yes /GENERAL ENGINEERING TEACHER: Other - Present Medications Home Medications: Ambulatory Orders Medication Instructions Recorded Confirmed Multivitamin [Multiple Vitamins] 1 tab PO DAILY 04/22/18 03/25/20 - Allergies Allergies/Adverse Reactions: Allergies Allergy/AdvReac Type Severity Reaction Status Date / Time No Known Drug Allergies Allergy Verified 03/25/20 18:57 - Social History Does the pt smoke?: No Smoking Status: Never smoker Does the pt drink ETOH?: No Does the pt have substance abuse?: No - Immunizations Immunizations are current?: No - POLST Patient has POLST: No PD ED PE NORMAL - Vitals Vital signs reviewed: Yes - General General: Alert and oriented X 3, No acute distress - HEENT HEENT: PERRL, EOMI - Neck Neck: Supple, no meningeal sign, No bony TTP - Cardiac Cardiac: RRR, No murmur - Respiratory Respiratory: No respiratory distress, Clear bilaterally - Abdomen Abdomen: Soft, Non tender - Back Back: No CVA TTP, No spinal TTP - Derm Derm: Normal color, Warm and dry - Extremities Extremities: No edema, No calf tenderness / cord - Neuro Neuro: Alert and oriented X 3, Normal speech Results - Vitals Vitals: Vital Signs - 24 hr 03/25/20 03/25/20 03/25/20 18:58 20:36 22:21 Temperature 37.1 C 37.2 C 36.9 C Heart Rate 80 72 70 Respiratory 18 12 14 Rate Blood Pressure 124/56 L 116/61 112/59 L O2 Saturation 98 100 100 Oxygen O2 Source Room air - Labs Labs: Laboratory Tests 03/25/20 03/25/20 03/25/20 19:25 19:25 19:25 WBC 6.9 RBC 4.13 L Hgb 13.4 Hct 39.9 MCV 96.6 MCH 32.4 H MCHC 33.6 RDW 11.9 L Plt Count 210 MPV 11.1 H Sodium 141 Potassium 3.9 Chloride 104 Carbon Dioxide 26 Anion Gap 11.0 BUN 12 Creatinine 0.8 Estimated GFR (MDRD) 103 Glucose 88 Calcium 9.3 Total Bilirubin AST ALT Alkaline Phosphatase Total Protein Albumin Globulin Albumin/Globulin Ratio HCG, Quant 82.85 Blood Type Antibody Screen 03/25/20 03/25/20 19:25 21:39 WBC RBC Hgb Hct MCV MCH MCHC RDW Plt Count MPV Sodium 139 Potassium 3.9 Chloride 106 Carbon Dioxide 25 Anion Gap 8.0 BUN 13 Creatinine 0.8 Estimated GFR (MDRD) 103 Glucose 92 Calcium 9.3 Total Bilirubin 0.6 AST < 10 L ALT 10 Alkaline Phosphatase 81 Total Protein 7.2 Albumin 4.1 Globulin 3.1 Albumin/Globulin Ratio 1.3 HCG, Quant Blood Type O POSITIVE Antibody Screen NEGATIVE PD MEDICAL DECISION MAKING - ED course Complexity details: reviewed old records ED course: Ultrasound report from [facility] obtained and reviewed dated yesterday, March 242020. Impression: Intrauterine gestation is not seen. Correlation with quantitative beta hCG is recommended, note is made of a hypervascular structure within the right ovary measuring 1.8 x 1.9 x 1.3 cm, potentially an early ectopic . No associated hemoperitoneum. Left ovary not identified. 29-year-old woman with of unknown location, history of ectopic . Beta-hCG is gone up slightly since yesterday. [facility]'s ultrasound is nondiagnostic. Case discussed by phone with Oksana Mccracken, on-call OB/gyne. Confirmed with patient several times that she does not desire this and as such Dr. Mccracken recommended by off her methotrexate. After discussion of risks and benefits including termination that could be normal, patient desires the methotrexate injection. Dr. Mccracken recommends following up for repeat beta-hCG on day 4 and 7 and stopping her vitamins. Departure - Departure Disposition: 01 Home, Self Care Clinical Impression: of unknown anatomic location Condition: Good Record reviewed to determine appropriate education?: Yes Instructions: ED Preg Ectopic Methotrexate Tx Comments: You were seen tonight for vaginal bleeding and pelvic pain in . It is unclear where the is located at this point. Beta-hCG is now 82. After discussion since you do not desire this , you were given methotrexate injection. You will need to follow-up with your physician for beta hCGs on day 4, that, day 7, next Friday. If they are not dropping you may need a second injection. You should stop taking vitamins for now. Discussed alternative control options with your physician on follow-up. Discharge Date/Time: 03/25/20 22:21
[2020-03-25 19:32] LABS: HGB - HEMOGLOBIN 13.4 g/dL (12.0-16.0); MEAN CORPUSCULAR HEMOGLOBIN 32.4 pg (27.0-31.0); MEAN CORPUSCULAR HGB CONC 33.6 g/dL (32.0-36.0); MEAN CORPUSCULAR VOLUME 96.6 fL (81.0-99.0); MEAN PLATELET VOLUME 11.1 fL (7.9-10.8); RED BLOOD COUNT 4.13 10^6/uL (4.20-5.40); RED CELL DISTRIBUTION WIDTH 11.9 % (12.0-15.0); WHITE BLOOD COUNT 6.9 x10^3/uL (4.8-10.8)
[2020-03-25 19:42] LABS: CALCIUM 9.3 mg/dL (8.5-10.3); CREATININE 0.8 mg/dL (0.4-1.0)
[2020-03-25] MEDS ORDERED: METHOTREXATE 50 MG/2 ML MDV IM STA (21:52)
[2020-03-25 22:01] LABS: ALBUMIN 4.1 g/dL (3.2-5.5); ALBUMIN/GLOBULIN RATIO 1.3 (1.0-2.2); ALKALINE PHOSPHATASE 81 IU/L (42-121); ALT ALANINE AMINOTRANSFERASE 10 IU/L (10-60); AST ASPARTATE AMINOTRANSFERASE < 10 IU/L (10-42); BILIRUBIN,TOTAL 0.6 mg/dL (0.2-1.0); BUN - BLOOD UREA NITROGEN 13 mg/dL (6-20); CALCIUM 9.3 mg/dL (8.5-10.3); CARBON DIOXIDE - CO2 25 mmol/L (21-32); CHLORIDE 106 mmol/L (101-111); CREATININE 0.8 mg/dL (0.4-1.0); GLUCOSE 92 mg/dL (70-100); SODIUM 139 mmol/L (135-145); TOTAL PROTEIN 7.2 g/dL (6.7-8.2)
--- NOTE | 2020-03-25 22:02 | Ultrasound Report ---
PROCEDURE: OB First Trimester INDICATIONS: R pelvic pain OUTSIDE/PRIOR DATING DATA: Last menstrual period (LMP): 02/17/2020. LMP-based estimated date of delivery (MELVINA): 11/23/2020. First dating scan (date and location): 03/25/2020. Estimated date of delivery (MELVINA) from first dating scan: Not applicable. TECHNIQUE: Real-time scanning was performed of the fetus and maternal pelvic organs, with image documentation. COMPARISON: None FINDINGS: There is no visualized intrauterine . No gestational sac is identified. Minimal fluid is not ed within the endometrial stripe. There is mild prominence of the right fallopian tube, with a small adjacent focus of decreased echogenicity. No pelvic fluid is identified. IMPRESSION: 1. No visualized intrauterine . 2. There is nonspecific prominence of the right fallopian tube with a small focus of decreased echoge nicity adjacent to it. While no definitive appearance of extrauterine gestational or yolk sac is iden tified, given positive beta hCG level and slightly dilated right fallopian tube, short interval imagi ng follow-up of this region is recommended with correlation to beta hCG levels as imaging cannot excl ude presence of potential ectopic . Reviewed by: Prema Street MD on 03/25/2020 10:01 PM PST Approved by: Prema Street MD on 03/25/2020 10:01 PM PST Station ID: [id number]
[2020-03-25 22:23] VITALS: BP 112/59
== END 2020-03-25 22:21 | disposition home or self-care (01) ==
LOC: ED 18:54
DX: O36.80X0 Pregnancy with inconclusive fetal viability, not applicable or unspecified (principal); Z3A.01 Less than 8 weeks gestation of pregnancy; Z67.40 Type O blood, Rh positive; Z64.0 Problems related to unwanted pregnancy
CPT/HCPCS: 36415; 76801; 76817; 80048; 80053; 84702; 85027; 86850; 86900; 86901; 96372; 99284; J9250